=== PATIENT | female | born 1990 | race American Indian/Alaskan Native ===

== ENCOUNTER 2018-11-24 02:14 | Emergency (ER) | payer SELFPAY ==
[2018-11-24 02:56] VITALS: BP 107/62
== END 2018-11-24 02:30 | disposition left against medical advice (07) ==
LOC: ED 02:14
DX: K62.89 Other specified diseases of anus and rectum (principal); Z53.21 Procedure and treatment not carried out due to patient leaving prior to being seen by health care provider